=== PATIENT | female | born 1975 | race Caucasian/White ===

== ENCOUNTER 2017-07-11 16:00 | Emergency (ER) | payer OTHER ==
[~2017-07-11] VITALS: Ht 149.9 cm; Wt 56.7 kg
[~2017-07-11 16:00] MED LIST: ACET325 PO; ACET500; ACET500 PO; ALBU90OI INH; ALBU90OI6 INH; ALPR.5; ALPR.5 PO; ALPR1; ALPR1 PO; ATEN25 PO; AZIT250; AZIT250 PO; Alprazolam0.5 MG PO; CARB200 PO; CARI350 PO; CELEXA; CEPH500 PO; CIPR500 PO; CITA20; CITA20 PO; CLIN150; CLIN150 PO; CLIN300 PO; CLON.5 PO; CLON1; CRUTCH3 USE; Citalopram HBr10 MG PO; DIAZ10; DIAZ5; DILAUDID; DIVA250EC PO; DIVA500EC PO; DOXY100T53; ERYT500 PO; ESCI10; ESCI20; FLUO20; HYDACE10A PO; HYDACE10B PO; HYDACE5 PO; HYDACE7.5 PO; HYDMOR2 PO; HYDMOR4 PO; IBUP200 PO; IBUP400 PO; KETO10 PO; LAVAP17G PO; LEVE500; LEVE500 PO; LORA.5 PO; LORA1 PO; MUPI2TO TOP; Macrobid 100 M100 MG PO; Mobic7.5 MG PO; NAPR220 PO; NAPR500; NAPR500 PO; NAPR550 PO; NORT25; OXYACE5T PO; OXYC5 PO; PARO20 PO; PHENY100ER PO; PRAZ5 PO; PRED20 PO; PRED5; PROC10 PO; PROC25S PR; PROM25 PO; PROP20 PO; PROP40 PO; Pyridium200 MG PO; QUET200; QUETIAPINE FUMA50 MG PO; RANI150 PO; RXCLIN PO; RXHYDACE PO; RXHYDMOR2 PO; RXNAPNA550 PO; RXPROM25S PR; SILSUL1TC TOP; TRAM50 PO; VALP250 PO; ZOLP12.5; Zithromax250 MG PO
[2017-07-11] MEDS ORDERED: IBUP800 (16:44)
[2017-07-11] MEDS ORDERED: TOPI50 PO (16:44)
[2017-07-11] MEDS ORDERED: CLON1 PO (16:45)
[2017-07-11] MEDS ORDERED: HYDR100 PO (16:46)
[2017-07-11] MEDS ORDERED: PRAZ2 PO (16:48)
== END 2017-07-11 18:15 | disposition home or self-care (01) ==
LOC: ER 16:00
DX: M25.551 Pain in right hip (principal); Z88.0 Allergy status to penicillin; Z88.8 Allergy status to other drugs, medicaments and biological substances; Z88.5 Allergy status to narcotic agent; Z88.2 Allergy status to sulfonamides; Z79.899 Other long term (current) drug therapy; Z79.2 Long term (current) use of antibiotics; G40.909 Epilepsy, unspecified, not intractable, without status epilepticus; G43.909 Migraine, unspecified, not intractable, without status migrainosus; F41.9 Anxiety disorder, unspecified; F17.200 Nicotine dependence, unspecified, uncomplicated
CPT/HCPCS: 73502; 99283

== ENCOUNTER 2017-07-22 15:23 | Emergency (ER) | payer OTHER ==
[~2017-07-22] VITALS: Ht 149.9 cm; Wt 54.4 kg
[~2017-07-22 15:23] MED LIST changes: +CLON1 PO; +HYDR100 PO; +IBUP800; +PRAZ2 PO; +TOPI50 PO
== END 2017-07-22 16:48 | disposition home or self-care (01) ==
LOC: ER 15:23
DX: S70.11XA Contusion of right thigh, initial encounter (principal); S70.01XA Contusion of right hip, initial encounter; S80.01XA Contusion of right knee, initial encounter; G40.909 Epilepsy, unspecified, not intractable, without status epilepticus; F41.9 Anxiety disorder, unspecified; F17.210 Nicotine dependence, cigarettes, uncomplicated; Z88.0 Allergy status to penicillin; Z88.5 Allergy status to narcotic agent; Z88.8 Allergy status to other drugs, medicaments and biological substances; Z88.6 Allergy status to analgesic agent; Z88.2 Allergy status to sulfonamides; Z79.899 Other long term (current) drug therapy; W01.0XXA Fall on same level from slipping, tripping and stumbling without subsequent striking against object, initial encounter
CPT/HCPCS: 73502; 73552; 73562-RT; 99283